=== PATIENT | female | born 1985 | race Caucasian/White ===

== ENCOUNTER 2016-11-28 11:24 | Emergency (ER) | payer OTHER ==
--- NOTE | 2016-11-28 12:17 | PD ---
HPI Chief Complaint Left sided pain Date Seen: November 28, 2016 Time Seen: 12:00 (Deisi Schmid MD R2) Travel History International Travel<30 Days: No Contact w/Intl Traveler<30Days: No Known Affected Area: No (Deisi Schmid MD R2) International Travel<30 Days: No Contact w/Intl Traveler<30Days: No (Jairon Herrera MD) History of Present Illness HPI Patient is a 31-year-old at 26/3 weeks gestation based on first trimester ultrasound with BEAN of 03/03/17 presenting due to pain in her right side. Patient is from [place] and currently in town on vacation. She has had a persistent cough for over 1 week. She was prescribed azithromycin which she completed yesterday. A few days ago while coughing she felt a pain in her right upper side and attributed this to her cough. Cough is productive of yellow/green sputum and has been improving. She called her doctor about this pain and was advised to be seen and evaluated. She denies any fevers, chills. She endorses movement, denies vaginal bleeding, leakage of fluid, abdominal pain, contractions. Para: 0 : 2 Miscarriage: 1 (Deisi Schmid MD R2) History Past Medical History Medical History: Denies Significant Hx (Deisi Schmid MD) Obstetric History Obstetric History #1: Miscarriage at approximately 10 weeks #2: In vitro fertilization, no complications (Deisi Schmid MD) Past Surgical History Narrative Surgical Cholecystectomy (Deisi Schmid MD) Family History Narrative Family History Mother: Healthy Father: Hypertension (Deisi Schmid MD) Social History Alcohol Use: No Tobacco Use: No Substance Abuse: No (Deisi Schmid MD) Review of Systems General / Constitutional: No: Fever, Chills Eyes: No: Visual changes HENT: No: Headaches Cardiovascular: Chest Pain or Discomfort (right side) Respiratory: Cough Gastrointestinal: Nausea, Vomiting, No: Abdominal Pain Genitourinary: No: Dysuria Skin: No Rash Psychiatric: No: Mood Disorder (Deisi Schmid MD) Physical Exam Narrative GENERAL: Well-nourished, well-developed patient. SKIN: Warm and dry. HEAD: Normocephalic and atraumatic. EYES: No scleral icterus. No injection or drainage. ENT: No nasal drainage noted. Mucous membranes pink. Airway patent. NECK: Supple, trachea midline. No JVD. CARDIOVASCULAR: Regular rate and rhythm without murmurs, gallops, or rubs. RESPIRATORY: Breath sounds equal bilaterally. No accessory muscle use. ABDOMEN/GI: Abdomen soft, non-tender, bowel sounds present, no rebound, no guarding Gravid to 26 weeks size GENITOURINARY: Exam deferred Membranes: Intact Uterine Contractions: Absent FHT's: Category: 1 Baseline: 150 Reactive: + Variability: Moderate Decels: Absent EXTREMITIES: No cyanosis or edema. BACK: Nontender without obvious deformity. No CVA tenderness. NEUROLOGICAL: Awake and alert. Motor and sensory grossly within normal limits. Five out of 5 muscle strength in all muscle groups. Normal speech. (Deisi Schmid MD R2) Data Data Vital Signs Reviewed: Yes (Deisi Schmid MD R2) MDM Interpretation(s) Patient is a 31-year-old at 26/3 weeks gestation presenting due to right- sided chest pain. IUP Category 1 tracing, reassuring Continue care as scheduled Right-sided chest pain Exam consistent with muscle strain Patient may take Tylenol as needed Cough Likely viral, lungs clear on exam Patient advised to use [id number] cough medicine, such as Robitussin She was advised that her symptoms persist for up to several weeks dw Dr. Herrera (Deisi Schmid MD R2) Diagnosis Diagnosis: Primary Impression: Musculoskeletal chest pain Additional Impression: Second trimester Disposition: DISCHARGE HOME Condition: Stable Referrals: [facility] as needed Deisi Schmid MD R2 November 28, 2016 12:17 Jairon Herrera MD November 28, 2016 12:52
== END 2016-11-28 12:29 | disposition home or self-care (01) ==
LOC: HOBED 11:24
DX: O26.892 Other specified pregnancy related conditions, second trimester (principal); R05 Cough; S29.011A Strain of muscle and tendon of front wall of thorax, initial encounter; X58.XXXA Exposure to other specified factors, initial encounter; Y93.89 Activity, other specified; Y92.89 Other specified places as the place of occurrence of the external cause; Y99.8 Other external cause status; Z3A.01 Less than 8 weeks gestation of pregnancy
CPT/HCPCS: 99282